=== PATIENT | female | born 1940 | race Hispanic/Latino ===

== ENCOUNTER 2018-06-18 12:55 | Inpatient (IN) | payer SELFPAY ==
[2018-06-18 13:54] LABS: #Eosinphils 0.1 thou/uL (0.0-0.7); #Lymphocytes 0.4 thou/uL (1.20-3.40); #Monocytes 0.5 thou/uL (0.11-0.59); #Neutrophils 10.5 thou/uL (1.40-6.50); %Basophils 0.1 % (0.0-1.0); %Eosinophils 0.5 % (0.0-10.0); %Lymphocytes 3.7 % (21.0-51.0); %Monocytes 4.7 % (0.0-10.0); %Neutrophils 90.9 % (42.0-75.0); Hemoglobin 10.6 g/dL (12.0-16.0); Mean Corpuscular HGB CONC 33.8 g/dL (32.0-36.0); Mean Corpuscular Hemoglobin 29.8 pg (27.0-31.0); Mean Corpuscular Volume 88.2 fL (78.0-98.0); Mean Platelet Volume 6.3 fL (7.4-10.4); Platelet Count 196 thou/uL (130-400); RBC Distribution Width 12.7 % (11.5-14.5); Red Blood Cell (RBC) Count 3.57 mill/uL (4.20-5.40); White Blood Cell (WBC) Count 11.5 thou/uL (4.8-10.8)
[2018-06-18] MEDS ORDERED: Ondansetron ODT 4 MG TAB ONE (14:10)
[2018-06-18 14:16] LABS: ALT (SGPT) 10 U/L (8-55); AST (SGOT) 16 U/L (5-34); Albumin 4.1 g/dL (3.4-4.8); Alkaline Phosphatase 61 U/L (40-150); Anion Gap 14 mmol/L (10-20); BUN (Urea Nitrogen) 52 mg/dL (9.8-20.1); Bilirubin, Total 0.3 mg/dL (0.2-1.2); Calc. Creatinine Clearance 0 mL/min (70-130); Carbon Dioxide 14 mmol/L (23-31); Chloride 115 mmol/L (98-107); Estimated GFR-MDRD 17; Globulin 3.3 g/dL (2.4-3.5); Glucose 157 mg/dL (83-110); Potassium 5.1 mmol/L (3.5-5.1); Protein, Total 7.4 g/dL (6.0-8.3); Sodium 138 mmol/L (136-145)
[2018-06-18] MEDS ORDERED: Ondansetron PF 4 MG/2 ML Vial ONE (14:20)
[2018-06-18] MEDS ORDERED: Ketorolac Tromethamine 30 MG/ML VIAL ONE (14:20)
[2018-06-18] MEDS ORDERED: Morphine 4 MG/ML VIAL ONE ×2 (14:20→16:25)
[2018-06-18 14:36] LABS: Bilirubin Negative (Negative); Blood, Urine Negative (Negative); Clarity CLOUDY (Clear); Glucose, Urine (Dipstick) Negative (Negative); Leukocyte Negative (Negative); Nitrite Negative (Negative); Protein, Urine (Dipstick) Negative (Neg-Trace); Specific Gravity, Urine 1.012 (1.002-1.036); Urobilinogen 0.2 mg/dL (0.2-1.0)
[2018-06-18 15:26] LABS: Troponin I Less than 0.010 ng/mL (< 0.028)
--- NOTE | 2018-06-18 16:06 | CT ---
Noncontrast enhanced CT images abdomen and pelvis. HISTORY: Right-sided flank pain since this morning Noncontrast enhanced CT images of the abdomen and pelvis obtained. The lung bases are unremarkable. No evidence of free intraperitoneal air seen. The liver and spleen are unremarkable. The gallbladder and pancreas unremarkable. Adrenal glands unremarkable. The kidneys demonstrate fat stranding surrounding the perirenal structures. No evidence of hydroureteronephrosis seen. No evidence of obstructing renal calculi seen. No evidence of periaortic lymphadenopathy seen. Numerous descending and sigmoid colonic diverticula are present. IMPRESSION: 1.: Some perirenal fat stranding seen without evidence of significant intra-abdominal or pelvic patho logy noted otherwise. 2: Colonic diverticulosis. Transcribed Date/Time: 06/18/2018 4:17 PM
--- NOTE | 2018-06-18 17:04 | ULT ---
Right upper quadrant ultrasound: 06/18/2018 COMPARISON: None HISTORY: Right upper quadrant pain TECHNIQUE: Multiplanar grayscale sonographic imaging of the right upper quadrant provided. FINDINGS: The oracle database developer reports a negative Farooq's sign. Imaged pancreas appears unremarkable. Lef t lobe of the liver is obscured by bowel gas. Imaged hepatic parenchyma demonstrates no focal lesion or biliary dilatation. The common bile duct is 7 mm in transverse dimension, upper limits of n ormal for a patient of this age. No cholelithiasis, gallbladder wall thickening, or pericholecystic fluid. Right kidney measures 7.9 cm in craniocaudal dimension and demonstrates no stone hydronephrosis or ma ss. IMPRESSION: No evidence for cholelithiasis or cholecystitis.
[2018-06-18] MEDS ORDERED: Sodium Chloride 0.9% 1,000 ML IV SCH (18:00)
--- NOTE | 2018-06-18 18:20 | CT ---
Head CT without contrast 06/18/2018: HISTORY: Headache, nausea, vomiting, right-sided weakness TECHNIQUE: Axial CT imaging at 5 mm intervals from vertex through skull base without contrast FINDINGS: There is a mass in the left frontal region which demonstrates partial internal calcificatio n. The adjacent calvarium is thickened. This lesion appears extra-axial in location and measures approximately 2.9 x 2.2 cm. There is hypodensity within the adjacent left frontal deep and subcortica l white matter suggesting associated vasogenic edema. No intracranial hemorrhage. No ventricular enlargement. Focus of hypodensity in the karen measuring 9-10 mm noted on axial image 7, evidence of age indetermin ant ischemia. No acute osseous abnormality. IMPRESSION: Partially calcified mass in the left frontal region with associated left frontal lobe vas ogenic edema. This lesion appears to be extra-axial in location and is most consistent with meningioma. Subcentimeter hypodensity within the karen suggesting age-indeterminate ischemia. Above findings should be further assessed via contrast enhanced brain MRI. Results called to provider Zev in ER at 6:15 PM 06/18/2018.
--- NOTE | 2018-06-18 18:24 | RAD ---
TWO VIEWS CHEST: 06/18/18 HISTORY: Right sided flank pain. Patient with history of vomiting, shortness of breath and chest pain. AP and lateral views of the chest are obtained. EKG leads seen over the chest. The lungs are well aerated. No evidence of active intrathoracic diseas e seen. No evidence of effusions, pneumonia or pneumothorax seen. IMPRESSION: Unremarkable two views chest. POS: FFK
[2018-06-18] MEDS ORDERED: Aspirin 325 MG TAB ONE (18:29)
[2018-06-18] MEDS ORDERED: Acetaminophen 325 MG TAB ONE (18:29)
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
[2018-06-18] MEDS ORDERED: Ondansetron ODT 4 MG TAB SL PRN (19:55)
[2018-06-18] MEDS ORDERED: Acetaminophen 325 MG TAB PO PRN (19:55)
[2018-06-18] MEDS ORDERED: Ondansetron PF 4 MG/2 ML Vial IVP PRN (19:55)
[2018-06-18 21:02] LABS: Troponin I Less than 0.010 ng/mL (< 0.028)
[2018-06-18] MEDS: Famotidine/PF 20 mg/2ml Vial SLOW IVP SCH (21:25)
[2018-06-19 05:32] LABS: #Lymphocytes 1.2 thou/uL (1.20-3.40); #Monocytes 0.4 thou/uL (0.11-0.59); #Neutrophils 5.9 thou/uL (1.40-6.50); %Eosinophils 0.2 % (0.0-10.0); %Lymphocytes 15.4 % (21.0-51.0); %Monocytes 5.8 % (0.0-10.0); %Neutrophils 78.5 % (42.0-75.0); Hemoglobin 8.3 g/dL (12.0-16.0); Mean Corpuscular HGB CONC 33.2 g/dL (32.0-36.0); Mean Corpuscular Hemoglobin 29.7 pg (27.0-31.0); Mean Corpuscular Volume 89.3 fL (78.0-98.0); Mean Platelet Volume 6.4 fL (7.4-10.4); Platelet Count 172 thou/uL (130-400); RBC Distribution Width 12.7 % (11.5-14.5); Red Blood Cell (RBC) Count 2.81 mill/uL (4.20-5.40); White Blood Cell (WBC) Count 7.6 thou/uL (4.8-10.8)
[2018-06-19 05:53] LABS: Anion Gap 10 mmol/L (10-20); BUN (Urea Nitrogen) 56 mg/dL (9.8-20.1); Calc. Creatinine Clearance 16 mL/min (70-130); Calcium 8.9 mg/dL (7.8-10.44); Carbon Dioxide 17 mmol/L (23-31); Cardiac Risk 3.5 (Less than 4.5); Chloride 118 mmol/L (98-107); Cholesterol 134 mg/dl (< 200 Desired); Estimated GFR-MDRD 17; Glucose 102 mg/dL (83-110); HDL Cholesterol 38 mg/dL (>60 Neg Risk); LDL Cholesterol, Calculated 74 mg/dL; Potassium 5.8 mmol/L (3.5-5.1); Sodium 139 mmol/L (136-145); Triglycerides 112 mg/dL (Less than 150)
[2018-06-19 09:05] LABS: Anion Gap 10 mmol/L (10-20); BUN (Urea Nitrogen) 56 mg/dL (9.8-20.1); Calc. Creatinine Clearance 16 mL/min (70-130); Calcium 8.8 mg/dL (7.8-10.44); Carbon Dioxide 16 mmol/L (23-31); Chloride 119 mmol/L (98-107); Estimated GFR-MDRD 17; Glucose 83 mg/dL (83-110); Potassium 5.4 mmol/L (3.5-5.1); Sodium 140 mmol/L (136-145)
[2018-06-19] MEDS: Sodium Bicarbonate 150 MEQ in Dextrose 5% in Water 1,000 ML IV SCH (09:45)
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
--- NOTE | 2018-06-19 11:54 | PDOC.PN ---
- Subjective Encounter Start Date: 06/19/18 Encounter Start Time: 11:45 Subjective: f/u for MAGUIRE, meningioma and TYRESE/CKD. Currently feels ok and receiving -: IVF's/bicarbonate/Kayexalate. - Objective Resuscitation Status - Order Detail: 06/18/18 17:52 Resuscitation Status Routine Co-Sign Provider: Resuscitation Status: FULL: Full Resuscitation MAR Reviewed: Yes Vital Signs & Weight: Vital Signs (12 hours) Temp Pulse Resp BP Pulse Ox 06/19/18 07:36 98 F 65 16 108/53 L 97 06/19/18 04:48 98.1 F 69 16 111/52 L 96 Weight Weight 127 lb 4.8 oz Result Diagrams: 06/19/18 05:00 06/19/18 08:39 Additional Labs: Accuchecks 06/19/18 06/18/18 10:37 20:34 POC Glucose 88 189 H Microbiology 06/18/18 14:12 Urine voided Urine Culture - Preliminary NO GROWTH AT 24 HOURS Laboratory Tests 06/18/18 06/18/18 06/18/18 13:42 13:42 18:20 WBC 11.5 H Hgb 10.6 L Neutrophils % 90.9 H Potassium 5.1 Carbon Dioxide 14 L Creatinine 2.74 H B-Natriuretic Peptide 114.4 H Triglycerides Cholesterol LDL Cholesterol, Calc HDL Cholesterol 06/19/18 06/19/18 05:00 05:00 WBC Hgb Neutrophils % 78.5 H Potassium 5.8 H Carbon Dioxide 17 L Creatinine 2.65 H B-Natriuretic Peptide Triglycerides 112 Cholesterol 134 LDL Cholesterol, Calc 74 HDL Cholesterol 38 Radiology Reviewed by me: Yes (CT brain - calcified mass L frontal consistent with meningioma) EKG Reviewed by me: Yes (Tele - SR) Phys Exam - Physical Examination Constitutional: NAD HEENT: PERRLA, sclera anicteric, oral pharynx no lesions Neck: no nodes, no JVD, supple, full ROM Respiratory: no wheezing, no rales, no rhonchi, clear to auscultation bilateral S1, S2 Cardiovascular: RRR, no significant murmur, no rub, gallop Gastrointestinal: soft, non-tender, no distention, positive bowel sounds Musculoskeletal: no edema, pulses present Neurological: normal sensation, moves all 4 limbs alert, responsive Skin: normal turgor, cap refill <2 seconds Dx/Plan (1) TYRESE (acute kidney injury) Code(s): N17.9 - ACUTE KIDNEY FAILURE, UNSPECIFIED Status: Acute Comment: Likely multifactorial or progression of CKD, avoid nephrotoxic meds and limit contrast exposure, D5W with bicarbonate IV (2) Chronic kidney disease (CKD), stage IV (severe) Code(s): N18.4 - CHRONIC KIDNEY DISEASE, STAGE 4 (SEVERE) Status: Chronic Comment: See above, Nephrology consulted (3) Hyperkalemia Code(s): E87.5 - HYPERKALEMIA Status: Acute Comment: Kayexalate, IVF's, serial K+ monitoring (4) Metabolic acidosis Code(s): E87.2 - ACIDOSIS Status: Acute Comment: Secondary to TYRESE/CKD, Sodium bicarbonate gtt, serial monitoring (5) Anemia in CKD (chronic kidney disease) Code(s): N18.9 - CHRONIC KIDNEY DISEASE, UNSPECIFIED; D63.1 - ANEMIA IN CHRONIC KIDNEY DISEASE Status: Chronic Comment: Serial H/H, likely will need Epo snf (6) Dyspnea Code(s): R06.00 - DYSPNEA, UNSPECIFIED Status: Acute Comment: Likely due to TYRESE, hyperkalemia, metabolic acidosis, no hypoxia - Plan plan discussed w/ family, 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
[2018-06-19] MEDS ORDERED: Acetaminophen/Codeine 30-300mg Tablet PO PRN (13:09)
--- NOTE | 2018-06-19 13:32 | CON ---
DATE OF CONSULTATION: REASON FOR CONSULTATION: Elevated creatinine and hyperkalemia. HISTORY OF PRESENT ILLNESS: This is a 77-year-old female, who drove straight from [place], was noted to have chronic kidney disease. Workup or medications were given. Her creatinine was 2.6 with a potassium of 5.8, so I was consulted. Though, the patient can give no further history of nausea, vomiting, diarrhea, or any NSAID use. PAST MEDICAL HISTORY: Significant for hypertension; anemia; history of chronic kidney disease, diagnosed in [place]; history of headaches; diabetes mellitus. PAST SURGICAL HISTORY: None. SOCIAL HISTORY: No alcohol or drug use. FAMILY HISTORY: Negative for ESRD. ALLERGIES: REVIEWED. REVIEW OF SYSTEMS: Fifteen-point review of system was performed and negative except for positives noted above. NECK: No swelling or lumps. NOSE: No epistaxis or discharge. EYES: No diplopia or pain. MUSCULOSKELETAL: No joint pain. NEUROPSYCHIATRIC SYSTEMS: No suicidal ideation. No ideation. SKIN: Denies any rash or ulcer. CONSTITUTIONAL: No fever or chills. PHYSICAL EXAMINATION: CONSTITUTIONAL: On examination, the patient is awake, alert. VITAL SIGNS: Afebrile, pulse 65, breathing 16, and blood pressure 135/64. GENERAL APPEARANCE AND MENTAL STATUS: Fair. HEAD/NECK: Normocephalic. Atraumatic. EYES: EOMI. No deformity. EARS: Clear. No ulcers. NOSE: Intact. No lesions. MOUTH: Clear. No discharge. THROAT: Clear. No exudate. LUNGS: Clear. No crackles. CARDIAC: S1, S2. No rub. ABDOMEN: Benign. Bowel sounds positive. GENITALIA/RECTUM: Bates absent. BACK/EXTREMITIES: Edema 0+. NEUROLOGICAL: Alert and motor intact. LABORATORY DATA: Labs reviewed. ASSESSMENT AND PLAN: 1. Acute kidney injury with chronic kidney disease most likely due to hypertension and diabetes mellitus. Continue gentle hydration. 2. Metabolic acidosis. Start bicarbonate drip. 3. Hyperkalemia. Give Kayexalate. No urgent indication for dialysis. We will follow renal function. If renal function does not improve, we will consider dialysis. Overall prognosis is poor. Job ID: [id number]
[2018-06-19] MEDS ORDERED: Acetaminophen/Codeine 30-300mg Tablet PO SCH (14:00)
[2018-06-19] MEDS: Famotidine/PF 20 mg/2ml Vial SLOW IVP SCH (20:35)
[2018-06-19] MEDS ORDERED: Pravastatin Sodium 20 MG TAB PO SCH (21:00)
[2018-06-20 04:38] LABS: Hemoglobin 7.8 g/dL (12.0-16.0); Platelet Count 144 thou/uL (130-400)
[2018-06-20 04:51] LABS: Anion Gap 11 mmol/L (10-20); BUN (Urea Nitrogen) 47 mg/dL (9.8-20.1); Calc. Creatinine Clearance 17 mL/min (70-130); Calcium 8.8 mg/dL (7.8-10.44); Carbon Dioxide 21 mmol/L (23-31); Chloride 113 mmol/L (98-107); Estimated GFR-MDRD 18; Glucose 93 mg/dL (83-110); Magnesium 1.7 mg/dL (1.6-2.6); Sodium 141 mmol/L (136-145)
[2018-06-20] MEDS: Sodium Bicarbonate 150 MEQ in Dextrose 5% in Water 1,000 ML IV SCH (08:13)
[2018-06-20] MEDS ORDERED: Amlodipine 5 MG TAB PO SCH (09:00)
[2018-06-20] MEDS ORDERED: Epoetin (ESRD) 10,000 UNITS/ML VIAL SC SCH (12:00)
--- NOTE | 2018-06-20 12:27 | PRG ---
DATE OF SERVICE: 06/20/2018 SUBJECTIVE: A 77-year-old female being seen for acute kidney injury. The patient denies nausea, vomiting, or chest pain. OBJECTIVE: CONSTITUTIONAL: The patient is awake and alert. VITAL SIGNS: Afebrile. Pulse 84, breathing 16, and blood pressure 138/60. GENERAL APPEARANCE AND MENTAL STATUS: Fair. HEAD/NECK: Normocephalic. Atraumatic. EYES: EOMI. No deformity. EARS: Clear. No ulcers. NOSE: Intact. No lesions. MOUTH: Clear. No discharge. THROAT: Clear. No exudate. LUNGS: Clear. No crackles. CARDIAC: S1, S2. No rub. ABDOMEN: Benign. Bowel sounds positive. GENITALIA/RECTUM: Bates absent. BACK/EXTREMITIES: Edema 0+. NEUROLOGICAL: Alert and motor intact. SKIN: LYMPHATICS: LABORATORY DATA: Labs showed hemoglobin 7.8. Creatinine 2.5. ASSESSMENT: 1. Acute kidney injury on chronic kidney disease, improved. 2. Acute kidney injury due to acute tubular necrosis, stable. 3. Hypertension, stable. 4. Anemia, would recommend Epogen. The patient can be discharged from my aspect. Job ID: [id number]
[2018-06-20 12:33] VITALS: BP 146/65; TEMP 98.5
--- NOTE | 2018-06-20 14:03 | PDOC.PN ---
- Subjective Encounter Start Date: 06/20/18 Encounter Start Time: 11:00 Subjective: feels better, no headache -: family at bedside - Objective Resuscitation Status - Order Detail: 06/18/18 17:52 Resuscitation Status Routine Co-Sign Provider: Resuscitation Status: FULL: Full Resuscitation MAR Reviewed: Yes Vital Signs & Weight: Vital Signs (12 hours) Temp Pulse Pulse Pulse Resp BP BP 06/20/18 12:02 98.5 F 73 16 06/20/18 10:43 75 69 129/62 140/64 06/20/18 08:14 63 06/20/18 07:08 98.4 F 63 16 06/20/18 03:08 98.2 F 71 22 H BP Pulse Ox 06/20/18 12:02 146/65 H 95 06/20/18 10:43 06/20/18 08:14 06/20/18 07:08 138/60 98 06/20/18 03:08 118/56 L 95 Weight Weight 129 lb I&O: 06/19/18 06/20/18 06/21/18 06:59 06:59 06:59 Intake Total 1689 Output Total 1250 Balance 439 Result Diagrams: 06/20/18 04:21 06/20/18 04:20 Additional Labs: Accuchecks 06/20/18 06/19/18 06/19/18 10:38 20:36 16:52 POC Glucose 156 H 126 H 132 H Phys Exam - Physical Examination HEENT: PERRLA, moist MMs Neck: no JVD, supple Respiratory: no wheezing, no rales Cardiovascular: RRR, no significant murmur Gastrointestinal: soft, non-tender, positive bowel sounds Musculoskeletal: no edema, pulses present Neurological: moves all 4 limbs right hemiparesis Psychiatric: normal affect, A&O x 3 Dx/Plan (1) TYRESE (acute kidney injury) Code(s): N17.9 - ACUTE KIDNEY FAILURE, UNSPECIFIED Status: Resolved (2) Metabolic acidosis Code(s): E87.2 - ACIDOSIS Status: Acute (3) HTN (hypertension) Code(s): I10 - ESSENTIAL (PRIMARY) HYPERTENSION Status: Chronic Qualifiers: Hypertension type: essential hypertension Qualified Code(s): I10 - Essential (primary) hypertension (4) Anemia in CKD (chronic kidney disease) Code(s): N18.9 - CHRONIC KIDNEY DISEASE, UNSPECIFIED; D63.1 - ANEMIA IN CHRONIC KIDNEY DISEASE Status: Chronic (5) Chronic kidney disease (CKD), stage IV (severe) Code(s): N18.4 - CHRONIC KIDNEY DISEASE, STAGE 4 (SEVERE) Status: Chronic (6) H/O: CVA (cerebrovascular accident) Code(s): Z86.73 - PRSNL HX OF TIA (TIA), AND CEREB INFRC W/O RESID DEFICITS Status: Chronic Comment: left karen - Plan hemostable -: has chronic right hemiparesis x5 yrs -: needs 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 d/w , is cleared for discharge.
[2018-06-20 14:12] VITALS: BMI 21.4
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
== END 2018-06-20 15:13 | disposition home or self-care (01) | DRG 683 ==
LOC: ERS 12:55 → 2SW 17:28 → OBSVTOIN 17:28
PROVIDERS: ADMIT Family Medicine; ATTEND Family Medicine
DX: N17.0 Acute kidney failure with tubular necrosis (principal); E87.2 Acidosis; N18.4 Chronic kidney disease, stage 4 (severe); E11.22 Type 2 diabetes mellitus with diabetic chronic kidney disease; I12.9 Hypertensive chronic kidney disease with stage 1 through stage 4 chronic kidney disease, or unspecified chronic kidney disease; E87.5 Hyperkalemia; D63.1 Anemia in chronic kidney disease; Z86.73 Personal history of transient ischemic attack (TIA), and cerebral infarction without residual deficits
CPT/HCPCS: 36415; 36416; 70450; 71046; 74176; 76705; 80048; 80053; 80061; 81003; 83690; 83735; 83880; 84443; 84484; 85014; 85018; 85025; 85049; 85379; 87086; 93005; J1885; J2270; J2405; J7070; Q0162; Q4081; S0028